=== PATIENT | male | born 1985 | race Caucasian/White ===

== ENCOUNTER → 2017-01-20 | Outpatient (CLI) | payer OTHER ==
--- NOTE | 2017-01-20 20:26 | PN ---
71-year-old gentleman who has been followed in the sleep center to discuss results of diagnostic sleep study. We discussed diagnostic sleep study in detail. No significant respiratory abnormalities have been documented. 21 hypopneas total with total apnea-hypopnea index 2.8 with lowest oxygen level 90%. No any episodes of apnea have been documented. This range is considered to be normal at the present time. No significant amount of periodic limb movements. [place] Sleepiness Scale today is 6 which is normal. MEDICATIONS: Lamictal 100 mg once a day. During physical exam, the patient in no distress. VITAL SIGNS: BP 135/95, HR 66, RR 16. Height 6 feet 1 inch. Weight 322. BMI 42.4. HEENT: PERRLA, EOMI evaluation of oropharynx showed moderately low position of soft palate. Neck: Supple. No JVD. Thyroid is not palpable. LUNGS: Clear to percussion and to auscultation. Good air exchange. No wheezing or rhonchi. HEART: S1, S2 regular. No murmurs, gallops, or rubs. ABDOMEN: Obese. Soft and nontender. Bowel sounds are present. No organomegaly appreciated. EXTREMITIES: No clubbing or cyanosis. PEDIATRIC MEDICAL ASSISTANT: Awake, alert, and oriented x3. Cranial nerves 2 to 7 intact. There is no fasciculation or atrophy noted. No focal deficits observed. IMPRESSION: 1. Loud snoring has been documented during the sleep study. 2. No significant respiratory abnormalities have been documented. 3. History of anxiety. 4. Obesity in the range of 40. 5. Status post left hand reconstruction 2009. PLAN: 1. Losing weight. 2. Sleep hygiene with regular time in bed for at least 8 hours. 3. Preferable position during sleep on the side slightly up. 4. Patient may consider evaluation by ear, nose and throat physician for possibility to treat snoring. 5. No driving if feeling any sleepiness. Thank you very much for allowing me to participate in the management of your patient. Sincerely, Bob Eldridge MD, PhD, FAASM. Diplomat of [place] [employer], Sleep Medicine Board by [place] [employer] [place] [employer] Psychiatric Specialist [facility]
== END | disposition home or self-care (01) ==
LOC: SLEEP 16:10
PROVIDERS: ATTEND Internal Medicine
DX: R06.83 Snoring (principal); F41.9 Anxiety disorder, unspecified; E66.9 Obesity, unspecified; Z68.41 Body mass index [BMI] 40.0-44.9, adult; Z98.890 Other specified postprocedural states; Z79.899 Other long term (current) drug therapy

== ENCOUNTER 2017-03-22 16:30 | Emergency (ER) | payer OTHER ==
[2017-03-22 16:36] VITALS: BP 148/85; PULSE 77; RESP 20; TEMP 97.8
[2017-03-22] MEDS ORDERED: BACITRACIN 500 UNIT/GM OINT 28.4 GM TUBE TOPICAL ONE (16:41)
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
== END 2017-03-22 17:08 | disposition home or self-care (01) ==
LOC: EC 16:30
DX: T23.231A Burn of second degree of multiple right fingers (nail), not including thumb, initial encounter (principal); T22.10XA Burn of first degree of shoulder and upper limb, except wrist and hand, unspecified site, initial encounter; T31.0 Burns involving less than 10% of body surface; F41.9 Anxiety disorder, unspecified; Z79.899 Other long term (current) drug therapy; Z91.011 Allergy to milk products; Z88.8 Allergy status to other drugs, medicaments and biological substances; X19.XXXA Contact with other heat and hot substances, initial encounter; Y93.89 Activity, other specified
CPT/HCPCS: 99283

== ENCOUNTER → 2017-04-22 | Outpatient (CLI) | payer OTHER ==
[2017-04-22 13:48] LABS: Basophils % (A) 0 %; CH 28.6; Eosinophils % (A) 0 %; HCT 43.4 % (39.0-53.0); HDW 2.85; Luc # (Auto) 0.22; Luc % (Auto) 2; Lymphocytes # (A) 1.7 k/uL (1.0-4.8); Lymphocytes % (A) 15 %; MCH 28.4 pg (25.0-35.0); MCHC 34.6 g/dL (31.0-37.0); Mean Platelet Volume 6.4; Monocytes # (A) 0.5 k/uL (0-1.0); Monocytes % (A) 5 %; Neutrophils # (A) 8.6 k/uL (1.3-7.7); Neutrophils % (A) 78 %; RBC 5.29 m/uL (4.30-5.90); RDW 12.6 % (11.5-15.5); WBC 11.1 k/uL (3.8-10.6); WBC (Perox) 11.59
--- NOTE | 2017-04-22 14:00 | XR ---
EXAMINATION TYPE: XR chest 2V DATE OF EXAM: 04/22/2017 COMPARISON: Prior chest x-ray 12/03/2014 HISTORY: Cough and congestion TECHNIQUE: Frontal and lateral views of the chest are obtained. FINDINGS: There is no focal air space opacity, pleural effusion, or pneumothorax seen. The cardiac silhouette size is within normal limits. The osseous structures are intact. IMPRESSION: No acute cardiopulmonary process.
[2017-04-22 14:09] LABS: ALT 41 U/L (21-72); AST 26 U/L (17-59); Alkaline Phosphatase 81 U/L (38-126); Anion Gap 13 mmol/L; Blood Urea Nitrogen 17 mg/dL (9-20); Calcium 9.2 mg/dL (8.4-10.2); Carbon Dioxide 23 mmol/L (22-30); Chloride 104 mmol/L (98-107); Glucose 81 mg/dL (74-99); Non-African American GFR(MDRD) >60 (>60 ml/min/1.73 sqM); Potassium 4.1 mmol/L (3.5-5.1); Sodium 140 mmol/L (137-145); Total Bilirubin 0.7 mg/dL (0.2-1.3); Total Protein 6.7 g/dL (6.3-8.2)
== END | disposition home or self-care (01) ==
LOC: RADXRMAIN 12:35
PROVIDERS: ATTEND Physician Assistant
DX: R05 Cough (principal); R50.9 Fever, unspecified
CPT/HCPCS: 71020; 80053; 85025

== ENCOUNTER 2018-06-26 08:58 | Day surgery (SDC) | payer OTHER ==
[2018-06-21 12:55] VITALS: BMI 36.2
[~2018-06-26 08:58] MED LIST: LACTATED RINGERS 1,000 ML IV SCH
[2018-06-26 09:18] VITALS: RESP 16; TEMP 97.2
[2018-06-26] MEDS ORDERED: LIDOCAINE 1% 20 ML VIAL (10MG/ML) FOR IV START INTRADERMA ONE (09:26)
[2018-06-26] MEDS ORDERED: ONDANSETRON 4 MG/2 ML VIAL ONE (09:56)
[2018-06-26] MEDS ORDERED: PROPOFOL 10 MG/ML 20 ML VIAL IV ONE (09:56)
[2018-06-26] MEDS ORDERED: LIDOCAINE 1% INJ 10MG/ML (20 ML MDV) ONE (09:56)
[2018-06-26] MEDS ORDERED: fentaNYL (PF) 50 MCG/ML 2 ML AMP ONE (09:56)
--- NOTE | 2018-06-26 10:31 | P.PCN ---
Date of Procedure: 06/26/18 Procedure(s) Performed: Procedures: 1. Esophagogastroduodenoscopy and biopsy. 2. Total colonoscopy and biopsy of the colon and terminal ileum. Preoperative diagnosis: Nausea, vomiting and diarrhea. Postoperative diagnosis: 1. Mild gastritis and duodenitis. 2. Normal colon and terminal ileum. 3.multiple biopsies obtained from the duodenum, antrum, esophagus, terminal ileum and random colon. Preparation: HalfLytely prep. Sedation: Was provided by anesthesia. Brief clinical history: The patient is a 33-year-old male who is scheduled for this evaluation because of chronic nausea, vomiting and diarrhea. He has no overt bleeding or any other GI complaints at this time. Procedure: With the patient on his left lateral decubitus position and after informed consent and adequate sedation, I passed the Olympus-GIF 160 video upper endoscope through the cricopharyngeus down the esophagus. GE junction was around 41 cm from the incisors and there was no definite hiatal hernia or any obvious esophagitis or complicated reflux disease. The endoscope was then passed into the stomach which was insufflated with air and inspected in detail including the retroflex view in the cardia. There was some mottling, erythema and friability in the antrum but no ulcers or erosions. Pyloric channel did not show any ulcers. Duodenal bulb shows mottling, erythema and friability but no ulcers, erosions or bleeding. Post bulbar area and descending duodenum appeared normal. I obtained biopsies from the duodenum, antrum and esophagus then the endoscope was withdrawn and I proceeded with the colonoscopy. Perianal area did not show any fissures or fistulas. There were no masses felt on digital rectal examination. The Olympus CFQ 160L video colonoscope was then inserted in the rectum in the usual fashion and advanced to the cecum. I intubated the ileocecal valve and examined the terminal ileum. The mucosa appeared healthy. No polyps or tumors were seen or any obvious diverticular disease or bleeding. I obtained biopsies from the terminal ileum and randomly from the colon then I retroflexed endoscope in the rectum before the endoscope was withdrawn. The patient tolerated the procedure well. Plan: The patient was reassured. Will await biopsy results. Further plans will be made based on his course and biopsy results. He'll follow up with you as planned and I'll be happy to see in the future if his symptoms persist.
[2018-06-26 10:56] VITALS: BP 122/77; PULSE 76
== END 2018-06-26 11:13 | disposition home or self-care (01) ==
LOC: ORWHC2ENDO 08:58
DX: K29.80 Duodenitis without bleeding (principal); K29.50 Unspecified chronic gastritis without bleeding; K20.9 Esophagitis, unspecified; K52.9 Noninfective gastroenteritis and colitis, unspecified; F41.9 Anxiety disorder, unspecified; Z79.899 Other long term (current) drug therapy; Z88.8 Allergy status to other drugs, medicaments and biological substances; Z91.011 Allergy to milk products
CPT/HCPCS: 88305; 45380; 43239; J2405; J2001; J3010; J2704

== ENCOUNTER 2018-07-24 08:17 | Emergency (ER) | payer OTHER ==
[2018-07-24] MEDS ORDERED: DIPH,PERTUS(ACELL)TETVAC-LF 0.5 ML VIAL IM ONE (08:46)
--- NOTE | 2018-07-24 08:52 | ED ---
Wound/Laceration HPI - General Chief Complaint: Wound/Laceration Stated Complaint: Laceration eyebrow Time Seen by Provider: 07/24/18 08:32 Source: patient, RN notes reviewed Mode of arrival: ambulatory Limitations: no limitations - History of Present Illness Initial Comments: 33-year-old male presents emergency Department chief complaint of right eye cat Scratch. Patient states that his cat scratched him in his right eyelid it did bleed fairly well last night and woke up 20 oh still open so he felt that he needs to come emergency department. He is unsure when his last tetanus was. Denies any blurred vision no double vision. States that he has no pain with ocular movement. - Related Data Home Medications Medication Instructions Recorded Confirmed Dicyclomine HCl 10 mg PO HS 06/21/18 07/24/18 Omeprazole 20 mg PO HS 06/21/18 07/24/18 lamoTRIgine [lamoTRIgine ER] 200 mg PO HS 06/21/18 07/24/18 Previous Rx's Medication Instructions Recorded Azithromycin [Zithromax Z-pack] 0 mg PO DIRECTED #1 pack 07/24/18 Cephalexin [Keflex] 500 mg PO Q6HR #28 cap 07/24/18 Allergies Allergy/AdvReac Type Severity Reaction Status Date / Time sertraline HCl [From Zoloft] Allergy Unknown Verified 07/24/18 08:38 Childhood Milk Containing Products AdvReac Nausea & Verified 07/24/18 08:38 [Dairy] Vomiting & Diarrhea Review of Systems ROS Statement: Those systems with pertinent positive or pertinent negative responses have been documented in the HPI. ROS Other: All systems not noted in ROS Statement are negative. Past Medical History Past Medical History: No Reported History History of Any Multi-Drug Resistant Organisms: None Reported Additional Past Surgical History / Comment(s): left hand Past Psychological History: Anxiety Smoking Status: Never smoker Past Alcohol Use History: None Reported Past Drug Use History: None Reported General Exam Limitations: no limitations General appearance: alert, in no apparent distress Head exam: Present: atraumatic, normocephalic, normal inspection Eye exam: Present: PERRL, EOMI. Absent: normal appearance (1 cm-laceration to the right eyelid), scleral icterus, conjunctival injection, periorbital swelling ENT exam: Present: normal exam, normal oropharynx, mucous membranes moist, TM's normal bilaterally Neck exam: Present: normal inspection, full ROM. Absent: tenderness, meningismus, lymphadenopathy Respiratory exam: Present: normal lung sounds bilaterally. Absent: respiratory distress, wheezes, rales, rhonchi, stridor Cardiovascular Exam: Present: regular rate, normal rhythm, normal heart sounds. Absent: systolic murmur, diastolic murmur, rubs, gallop, clicks Course Vital Signs 07/24/18 08:22 Temperature 98.3 F Pulse Rate 90 Respiratory 20 Rate Blood Pressure 131/85 O2 Sat by Pulse 99 Oximetry Procedures - Laceration Laceration #1 Consent Obtained: verbal consent Indication: laceration Site: eyelid Size (cm): 1 Description: linear Depth: simple, single layer Size of Sutures: 6-0 Number of Sutures: 1 Technique: simple, interrupted Patient Tolerated Procedure: well, no complications Medical Decision Making - Medical Decision Making 33-year-old male presents emergency department for right lid eye laceration. One stitch was placed in a laceration. Patient was placed on azithromycin Keflex. Disposition Clinical Impression: Right eyelid laceration, Cat scratch Disposition: HOME SELF-CARE Condition: Stable Instructions: Care For Your Stitches (ED), Laceration (ED) Additional Instructions: Please return to the Emergency Department if symptoms worsen or any other concerns. Prescriptions: Azithromycin [Zithromax Z-pack] 0 mg PO DIRECTED #1 pack Cephalexin [Keflex] 500 mg PO Q6HR #28 cap Is patient prescribed a controlled substance at d/c from ED?: No Referrals: Victoriano Porter DO [Primary Care Provider] - 1-2 days Time of Disposition: 08:51
[2018-07-24 09:53] VITALS: BP 128/85; PULSE 61; RESP 18; TEMP 98.6
== END 2018-07-24 09:52 | disposition home or self-care (01) ==
LOC: EC 08:17
DX: S01.111A Laceration without foreign body of right eyelid and periocular area, initial encounter (principal); F41.9 Anxiety disorder, unspecified; Z79.899 Other long term (current) drug therapy; Z91.011 Allergy to milk products; Z88.8 Allergy status to other drugs, medicaments and biological substances; W55.03XA Scratched by cat, initial encounter; Z23 Encounter for immunization
CPT/HCPCS: 12011; 90471; 90715; 99282

== ENCOUNTER 2019-05-01 14:46 | Emergency (ER) | payer OTHER ==
[2019-05-01 15:20] VITALS: BP 135/87; PULSE 56; RESP 18; TEMP 98.8
--- NOTE | 2019-05-01 16:32 | XR ---
EXAMINATION TYPE: XR knee complete LT DATE OF EXAM: 05/01/2019 CLINICAL HISTORY: Palpable abnormality of the patella. TECHNIQUE: Three views of the left knee are obtained. COMPARISON: None. FINDINGS: There is no acute fracture/dislocation evident in left knee. The tri-compartment joint sp aces appear within normal limits other than very small lateral compartment osteophyte. The overlying soft tissue appears unremarkable. Tortuous densities in the subcutaneous tissues likely represent fuller perficial venous varicosities. Extensor mechanism is grossly intact radiographically. No suspicious o sseous lesion. No radiographic correlate for the patient's palpable abnormality. No radiopaque foreig n body is seen. IMPRESSION: There is no acute fracture or dislocation in the left knee. No radiographic correlate fo r the patient's stated palpable abnormality overlying the patella. Targeted ultrasound could be perfo rmed if there is further concern.
--- NOTE | 2019-05-01 16:45 | ED ---
Extremity Problem HPI - General Chief complaint: Extremity Problem,Nontraumatic Stated complaint: Knee pain Time Seen by Provider: 05/01/19 16:14 Source: patient Mode of arrival: ambulatory Limitations: no limitations - History of Present Illness Initial comments: 33-year-old male presenting for anterior left knee redness. Patient states that he does a lot of lifting and bending at work. Patient states he started no tenderness over the anterior aspect of the left knee. This began one to 2 days prior. Patient states that he felt like he had a small lump on the anterior aspect. H called his primary care provider who recommended coming to the emergency department for further evaluation. Patient states he is able to weight-bear and bending the knee without difficulty. Patient states he only has slight tenderness with full flexion and that is over the anterior aspect. Patient has no difficulty weightbearing denies fever or chills night sweats or flank symptoms. Patient denies any recent upper rest or infections or surgeries. Patient has numbness tingling or loss sensation of the extremity. Patient denies any significant lower extremity swelling. Remaining review of systems negative upon arrival patient appears well signs of acute distress. Afebrile. - Related Data Home Medications Medication Instructions Recorded Confirmed Dicyclomine HCl 10 mg PO HS 06/21/18 07/24/18 Omeprazole 20 mg PO HS 06/21/18 07/24/18 lamoTRIgine [lamoTRIgine ER] 200 mg PO HS 06/21/18 07/24/18 Previous Rx's Medication Instructions Recorded Azithromycin [Zithromax Z-pack] 0 mg PO DIRECTED #1 pack 07/24/18 Cephalexin [Keflex] 500 mg PO Q6HR #28 cap 07/24/18 Cephalexin [Keflex] 500 mg PO Q6HR 28 Days #7 cap 05/01/19 Allergies Allergy/AdvReac Type Severity Reaction Status Date / Time prednisone Allergy Unknown Verified 05/01/19 15:20 sertraline HCl [From Zoloft] Allergy Unknown Verified 05/01/19 15:20 Childhood Milk Containing Products AdvReac Nausea & Verified 05/01/19 15:20 [Dairy] Vomiting & Diarrhea Review of Systems ROS Statement: Those systems with pertinent positive or pertinent negative responses have been documented in the HPI. ROS Other: All systems not noted in ROS Statement are negative. Past Medical History Past Medical History: No Reported History History of Any Multi-Drug Resistant Organisms: None Reported Past Surgical History: Orthopedic Surgery Additional Past Surgical History / Comment(s): left hand Past Psychological History: Anxiety Smoking Status: Never smoker Past Alcohol Use History: None Reported Past Drug Use History: None Reported General Exam - General Exam Comments Initial Comments: General: The patient is awake and alert, in no distress, and does not appear acutely ill. Eye: Pupils are equal, round and reactive to light, extra-ocular movements are intact. No nystagmus. There is normal conjunctiva bilaterally. No signs of icterus. Cardiovascular: There is a regular rate and rhythm. No murmur, rub or gallop is appreciated. Respiratory: Lungs are clear to auscultation, respirations are non-labored, breath sounds are equal. No wheezes, stridor, rales, or rhonchi. Musculoskeletal: Upon inspection of the knees bilaterally there is no significant soft tissue swelling noted. There is mild erythema of the anterior aspect of the left knee. There is small palpable induration noted of the anter ior patella. There is no tenderness to palpation over the joint line. Patient is able to fully flex extend both passively and actively at the left knee. No pain with this range of motion. Patient is able to weight-bear without difficulty or pain. Strength is intact as well as sensation of the proximal distal to the affected injury. Dorsalis pedis pulses +2 equal comparison bilaterally. Capillary refill less than 3 seconds. No evidence of foot drop. Compartments are soft and compressible. No painful noted out of proportion. No warmth to palpation of the knee joint. Neurological: A&O x 3. CN II-XII intact, There are no obvious motor or sensory deficits. Coordination appears grossly intact. Speech is normal. Skin: Skin is warm and dry and no rashes or lesions are noted. Psychiatric: Cooperative, appropriate mood & affect, normal judgment. Limitations: no limitations Course Vital Signs 05/01/19 15:16 Temperature 98.8 F Pulse Rate 56 L Respiratory 18 Rate Blood Pressure 135/87 O2 Sat by Pulse 98 Oximetry Medical Decision Making - Medical Decision Making 33 year male presenting for anterior knee pain and slight redness. On physical examination there is some slight redness of the anterior left knee. There is no significant swelling. No noted masses. The differential diagnosis includes developing prepatellar bursitis given patient's repetitive movement at work most likely inflammatory,ersus a developing cellulitis of the anterior knee skin. With sialitis and differential diagnosis patient be started on Keflex. Patient is also instructed to rest ice compress as well as take NSAIDs for left knee pain. No signs of septic joint this time. No signs consistent with a septic bursitis. And he stays are negative for acute osseous process. Return parameters discussed at length patient verbalized understanding. Patient is discharged with primary care follow-up. I discussed the case with attending provider Dr. Lenz prior to patient's discharge was agreeable care plan Disposition Clinical Impression: Right anterior knee pain Disposition: HOME SELF-CARE Condition: Good Instructions (If sedation given, give patient instructions): Knee Bursitis (ED), R.I.C.E. Treatment (ED) Additional Instructions: Please use medication as discussed. Please follow-up with family doctor in the next 2 days. Please return to emergency room if the symptoms increase or worsen or for any other concerns. Prescriptions: Cephalexin [Keflex] 500 mg PO Q6HR 28 Days #7 cap Is patient prescribed a controlled substance at d/c from ED?: No Referrals: Victoriano Porter DO [Primary Care Provider] - 1-2 days Time of Disposition: 16:45
== END 2019-05-01 17:04 | disposition home or self-care (01) ==
LOC: EC 14:46
DX: M25.561 Pain in right knee (principal); F41.9 Anxiety disorder, unspecified; Z79.899 Other long term (current) drug therapy; Z88.8 Allergy status to other drugs, medicaments and biological substances; Z91.011 Allergy to milk products
CPT/HCPCS: 99283

== ENCOUNTER → 2019-05-14 | Outpatient (CLI) | payer OTHER ==
--- NOTE | 2019-05-14 18:41 | US ---
EXAMINATION TYPE: US venous doppler duplex LE LT DATE OF EXAM: 05/14/2019 5:32 PM COMPARISON: NONE CLINICAL HISTORY: M79.605 Pain in left leg. Patient states having swelling. No hx of blood clots. No redness. SIDE PERFORMED: Left TECHNIQUE: The lower extremity deep venous system is examined utilizing real time linear array sonog emmanuel with graded compression, doppler sonography and color-flow sonography. VESSELS IMAGED: External Iliac Vein (EIV) Common Femoral Vein Deep Femoral Vein Greater Saphenous Vein * Femoral Vein Popliteal Vein Small Saphenous Vein * Proximal Calf Veins (* superficial vessels) FINDINGS: Grayscale, color doppler, spectral doppler imaging performed of the deep veins of the lower extremities. There is normal flow, compressibility, vascular waveforms. IMPRESSION: Negative for DVT, left lower extremity.
--- NOTE | 2019-05-15 09:23 | US ---
EXAMINATION TYPE: US extremity nonvasc mass LT DATE OF EXAM: 05/14/2019 COMPARISON: XRAY CLINICAL HISTORY: Palpable left knee M25.562. Palpable lump anterior left knee since April. Patient s tates it is getting bigger and feels numb. TECHNIQUE/FINDINGS: Area of concern scanned in the palpable region of the left knee. Superificial no nvascular complex fluid collection visualized= 3.3 x 2.4 x 0.7 cm. Contralateral images taken. IMPRESSION: Avascular complex fluid collection measuring 3.3 cm corresponding the palpable abnormali ty of the anterior left knee. This could represent portion of the joint effusion, however is not dist inctly connected to a larger joint effusion on ultrasound. Alternatively this could represent hematom a or cystic neoplasm given short-term increase in size per patient history. MRI with and without cont rast is recommended for further evaluation.
== END | disposition home or self-care (01) ==
LOC: RADUSWWP 17:01
PROVIDERS: ATTEND Family Medicine
DX: M79.605 Pain in left leg (principal); M25.562 Pain in left knee

== ENCOUNTER → 2019-05-28 | Outpatient (CLI) | payer OTHER ==
--- NOTE | 2019-05-28 23:17 | MR ---
EXAMINATION TYPE: MR knee LT wo/w con DATE OF EXAM: 05/28/2019 COMPARISON: None HISTORY: Palpable lump, anterior lt knee TECHNIQUE: Multiplanar, multisequence images of the left knee is performed with 13.5 mL intravenous G adavist gadolinium contrast. FINDINGS: The anterior and posterior cruciate ligaments are intact. The lateral meniscus is intact. There is mi ld degenerative signal change within the posterior horn and anterior horn of the medial meniscus with out extension to the articular surface. There is a very small knee joint effusion. The collateral lig aments are intact. Joint spaces are normal. I see no bony destructive process. There is no evidence o f a fracture. There is no bone edema. There is subcutaneous edema over the anterior patella. There is a 5 x 12 mm fluid collection over the anterior aspect of the patella. I see no definite pathologic enhancement. IMPRESSION: No evidence of ligamentous or meniscal tear. Small knee joint effusion. Moderate subcutaneous edema o tunde the anterior patella with small fluid collection and could be seroma or hematoma. Abscess not exc luded.
== END ==
LOC: RADMRIMAIN 21:13
PROVIDERS: ATTEND Family Medicine
DX: M25.462 Effusion, left knee (principal)
CPT/HCPCS: 73723; A9585

== ENCOUNTER 2019-07-17 19:39 | Emergency (ER) | payer OTHER ==
[2019-07-17 19:52] VITALS: BP 145/84; PULSE 60; RESP 20; TEMP 99.6
--- NOTE | 2019-07-17 20:30 | ED ---
Upper Extremity HPI - General Chief Complaint: Extremity Injury, Upper Stated Complaint: fall/wrist pain-[facility] Time Seen by Provider: 07/17/19 19:56 Source: patient Mode of arrival: ambulatory Limitations: no limitations - History of Present Illness Initial Comments: Patient is a 34-year-old male presenting to the emergency Department complaints of left wrist pain x 5 days. Patient states he was at work lifting a range when he missed a step in the range pushed left wrist into the wall. Patient states he had a small abrasion to the medial aspect of the left wrist however he did not have a lot of pain. Patient states over the last few days, his pain has been increasing. Patient noticed bruising around the area as well. Patient states he is still able to work yesterday and today. Patient has no other complaints at this time. Patient states he does have some plates and screws in his left hand from her previous injury. Patient denies fever or chills. Upon arrival to ER, vital signs are stable. - Related Data Home Medications Medication Instructions Recorded Confirmed Dicyclomine HCl 10 mg PO HS 06/21/18 07/24/18 Omeprazole 20 mg PO HS 06/21/18 07/24/18 lamoTRIgine [lamoTRIgine ER] 200 mg PO HS 06/21/18 07/24/18 Previous Rx's Medication Instructions Recorded Azithromycin [Zithromax Z-pack] 0 mg PO DIRECTED #1 pack 07/24/18 Cephalexin [Keflex] 500 mg PO Q6HR #28 cap 07/24/18 Cephalexin [Keflex] 500 mg PO Q6HR 28 Days #7 cap 05/01/19 Allergies Allergy/AdvReac Type Severity Reaction Status Date / Time prednisone Allergy Unknown Verified 07/17/19 19:52 sertraline HCl [From Zoloft] Allergy Unknown Verified 07/17/19 19:52 Childhood Milk Containing Products AdvReac Nausea & Verified 07/17/19 19:52 [Dairy] Vomiting & Diarrhea Review of Systems ROS Statement: Those systems with pertinent positive or pertinent negative responses have been documented in the HPI. ROS Other: All systems not noted in ROS Statement are negative. Past Medical History Past Medical History: No Reported History History of Any Multi-Drug Resistant Organisms: None Reported Past Surgical History: Orthopedic Surgery Additional Past Surgical History / Comment(s): left hand Past Psychological History: Anxiety Smoking Status: Never smoker Past Alcohol Use History: None Reported Past Drug Use History: None Reported General Exam - General Exam Comments Initial Comments: GENERAL: Well-appearing, well-nourished and in no acute distress. HEAD: Atraumatic, normocephalic. EYES: Pupils equal round and reactive to light, extraocular movements intact, sclera anicteric, conjunctiva are normal. ENT: TMs normal, nares patent, oropharynx clear without exudates. Moist mucous membranes. NECK: Normal range of motion, supple without lymphadenopathy or JVD. LUNGS: Breath sounds clear to auscultation bilaterally and equal. No wheezes rales or rhonchi. HEART: Regular rate and rhythm without murmurs, rubs or gallops. ABDOMEN: Soft, nontender, normoactive bowel sounds. No guarding, no rebound. No masses appreciated. : Deferred EXTREMITIES: Patient has mild pain with palpation of the left medial wrist. There is some bruising to the area. No swelling. Patient has full wrist range of motion. Neurovascular intact. NEUROLOGICAL: Cranial nerves II through XII grossly intact. Normal speech, normal gait. PSYCH: Normal mood, normal affect. SKIN: Warm, Dry, normal turgor, no rashes or lesions noted. Limitations: no limitations Course Vital Signs 07/17/19 19:41 Temperature 99.6 F Pulse Rate 60 Respiratory 20 Rate Blood Pressure 145/84 O2 Sat by Pulse 96 Oximetry Medical Decision Making - Medical Decision Making Patient is a 34-year-old male presenting with a left wrist contusion happened 5 days ago at work. X-rays reveal no acute fractures dislocations. Patient was educated on a bone contusion. Patient will use ice and Tylenol as needed for pain relief. Patient stable for discharge at this time. Patient follow-up with PCP as needed for continued to need pain. Disposition Clinical Impression: Contusion of left wrist Disposition: HOME SELF-CARE Condition: Stable Instructions (If sedation given, give patient instructions): Wrist Injury (ED) Additional Instructions: Please return to the Emergency Department if symptoms worsen or any other concerns. Use ice on the wrist as needed for pain relief. Is patient prescribed a controlled substance at d/c from ED?: No Referrals: Victoriano Porter DO [Primary Care Provider] - 1-2 days
--- NOTE | 2019-07-17 20:36 | XR ---
EXAMINATION TYPE: XR wrist complete LT DATE OF EXAM: 07/17/2019 COMPARISON: NONE HISTORY: Fall. Wrist pain. TECHNIQUE: 4 views FINDINGS: Carpal bones are intact. I see no fracture nor dislocation. Joint spaces are normal. There are no erosions IMPRESSION: No acute abnormality of the left wrist.
== END 2019-07-17 21:35 | disposition home or self-care (01) ==
LOC: EC 19:39
DX: S60.212A Contusion of left wrist, initial encounter (principal); F41.9 Anxiety disorder, unspecified; Z79.899 Other long term (current) drug therapy; Z88.8 Allergy status to other drugs, medicaments and biological substances; Z91.011 Allergy to milk products; W22.01XA Walked into wall, initial encounter; Y92.69 Other specified industrial and construction area as the place of occurrence of the external cause; Y99.0 Civilian activity done for income or pay
CPT/HCPCS: 99283

== ENCOUNTER 2019-12-14 11:22 | Day surgery (SDC) | payer OTHER ==
[2019-12-13 10:27] VITALS: BMI 36.2
[~2019-12-14 11:22] MED LIST changes: +LIDOCAINE 1% (10MG/ML) FOR IV START INTRADERMA PRN; +MIDAZOLAM 2 MG/2 ML VIAL IV PRN; +ONDANSETRON 4 MG/2 ML VIAL IVP ONE; +Pre Op ABX Message 1 EACH MISC MISCELLANE ONE; +fentaNYL (PF) 50 MCG/ML 2 ML AMP IVP PRN
[2019-12-14] MEDS ORDERED: DEXAMETHASONE SOD PHOSPHATE 10 MG/ML 1 ML VIAL IV ONE (11:58)
[2019-12-14] MEDS ORDERED: SCOPOLAMINE 1.5MG/72HR PATCH TRANSDERM ONE (12:00)
[2019-12-14] MEDS ORDERED: KETOROLAC 30 MG/ML 1 ML VIAL ONE (12:25)
[2019-12-14] MEDS ORDERED: fentaNYL (PF) 50 MCG/ML 2 ML AMP ONE (12:25)
[2019-12-14] MEDS ORDERED: LIDOCAINE 1% INJ 10MG/ML (20 ML MDV) ONE (12:25)
[2019-12-14] MEDS ORDERED: PROPOFOL 10 MG/ML 20 ML VIAL IV ONE (12:25)
[2019-12-14] MEDS ORDERED: SUCCINYLCHOLINE CHLORIDE VIAL 200 MG/10 ML VIAL IV ONE (12:25)
[2019-12-14] MEDS ORDERED: MIDAZOLAM 2 MG/2 ML VIAL ONE (12:25)
[2019-12-14] MEDS ORDERED: BUPIVACAINE (PF) 0.5% 30 ML VIAL INTRAARTIC ONE (13:32)
--- NOTE | 2019-12-14 13:53 | P.OP ---
Date of Procedure: 12/14/19 Procedure(s) Performed: PREOPERATIVE DIAGNOSIS: 1. 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 Left knee prepatellar bursal scar tissue irritation/mass POSTOPERATIVE DIAGNOSIS: 1. Left knee focal chondrosis/chondral defect patella 1.5 cm x 1.0 cm 2. Left knee prepatellar bursal scar tissue irritation/mass PROCEDURES PERFORMED: 1. Left knee arthroscopy, with chondroplasty of patellofemoral compartment 2. 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 He has difficulty kneeling secondary to a wad of scar tissue/mass in the prepatellar bursa that is extremely painful with direct contact. MRI findings are suspicious for patellofemoral chondrosis and prepatellar bursal scar tissue. Patient presents to the operating room today for arthroscopy with chondroplasty or smoothing of the articular surfaces, along with prepatellar bursectomy/excision of mass. I have explained the procedure in detail as well as potential risks and complications as being inclusive of but not limited to: Bleeding, infection, scarring, discomfort, blood vessel and/or nerve damage, failure to relieve symptoms, persistence or recurrence and/or worsening of symptoms, blood clot, pulmonary embolism, limp, , and other risks, including the need for knee replacement. The consent form has been signed. PROCEDURE: After appropriate consent was obtained, the patient was taken to the operating room and placed supine on the operating table. General anesthesia was initiated. The left knee was examined under anesthesia. Medial collateral, lateral collateral, anterior and posterior cruciate ligaments were all intact. Range of motion was 0-130 with mild crepitus in the patellofemoral compartment. Mild effusion but no soft tissue swelling was noted. Prepping and draping of the operative knee was performed in the usual sterile fashion using ChloraPrep. Care was taken that all pressure points were adequately padded. Leg barahona and pneumotourniquet were used. ``Time-out" was called [facility] to [facility] standards, confirming patient identity, surgical procedure, side, and antibiotics were not administered, per protocol. Prepatellar bursectomy was performed first. The mass was palpable beneath the skin surface in the prepatellar bursa centrally directly over the inferior aspect of the patella. A horizontal incision along Luzmaria's lines was made with a 15 blade, just through skin. Sharp dissection then carried down to bursal scar tissue which was prominent in this individual. Scar tissue mass was approximately a 2.0 cm diameter round area directly centered at the inferior pole of the patella. The mass of scar tissue was removed sharply. The sample was sent to pathology for analysis. Thorough irrigation was performed and hemostasis was obtained with electrocautery. Closure was performed with subcuticular 3-0 Monocryl suture. The surgical portals were placed directly next to the patellar tendon medially and laterally. Camera and instruments were carefully inserted into the knee and arthroscopy was performed. Mild synovitis was seen, and was resected where it appeared particularly inflamed. Patellofemoral joint showed grade 2 chondrosis involving an area approximately 1.5 cm x 1 cm of the undersurface of the patella without any corresponding changes to the trochlea. Unstable cartilage was was seen at the lesion of the patella and was trimmed as necessary to produce a smooth surface. Due to the shallowness of the lesion, microfracture was not indicated. Lateral compartment showed normal hyaline cartilage without defect. Lateral meniscus was visualized and probed, the anterior and posterior horns showing no significant degeneration. Popliteal hiatus was normal. No loose bodies. Medial compartment was then examined. Intact meniscus and intact hyaline cartilage was seen. Cruciate ligaments were noted to be intact. No loose bodies or ganglion cysts were noted around the cruciate ligaments. Medial and lateral gutters showed no evidence of loose bodies, but some mild synovitis was present and was resected with a shaver. Portals were then closed with 4-0 Monocryl suture. A quantity of ropivacaine solution was injected into the knee and around the portal sites. Steri-Strips were applied and tourniquet was deflated. Sterile dressing and light compressive dressing was applied using Webril and MARK wrap. Patient tolerated the procedure well and taken to recovery room in stable condition. Sponge and needle counts were correct.
[2019-12-14 13:57] VITALS: TEMP 97.2
[2019-12-14] MEDS: HYDROmorphone 0.5 MG/0.5 ML SYRINGE IVP PRN ×2 (14:20→14:25)
[2019-12-14] MEDS ORDERED: ONDANSETRON 4 MG/2 ML VIAL IVP ONE (14:32)
[2019-12-14 15:17] VITALS: RESP 17
[2019-12-14] MEDS ORDERED: HYDROcodone/APAP 7.5-325MG 1 EACH TAB PO ONE (15:26)
[2019-12-14 15:37] VITALS: BP 116/75; PULSE 62
[2019-12-14] MEDS ORDERED: ONDANSETRON ODT 4 MG TAB PO ONE (16:32)
== END 2019-12-14 17:03 | disposition home or self-care (01) ==
LOC: OR 11:22
PROVIDERS: ATTEND Orthopaedic Surgery
DX: M70.42 Prepatellar bursitis, left knee (principal); M71.862 Other specified bursopathies, left knee; R22.42 Localized swelling, mass and lump, left lower limb; M94.8X6 Other specified disorders of cartilage, lower leg; M65.862 Other synovitis and tenosynovitis, left lower leg; Z88.1 Allergy status to other antibiotic agents; Z88.8 Allergy status to other drugs, medicaments and biological substances; Z87.19 Personal history of other diseases of the digestive system; Z82.49 Family history of ischemic heart disease and other diseases of the circulatory system; E66.01 Morbid (severe) obesity due to excess calories; Z68.36 Body mass index [BMI] 36.0-36.9, adult; Z98.890 Other specified postprocedural states
CPT/HCPCS: 29877; 88305; 27340; J2250; J0330; J1100; J2405; J2001; J3010; J1885; J2704; J1170

== ENCOUNTER → 2019-12-25 | Outpatient (CLI) | payer OTHER ==
--- NOTE | 2019-12-25 12:31 | US ---
EXAMINATION TYPE: US venous doppler duplex LE LT DATE OF EXAM: 12/25/2019 12:23 PM COMPARISON: Prior left lower extremity venous ultrasound May 14, 2019 CLINICAL HISTORY: M25.562 PAIN IN LEFT KNEE, M70.42. Post left knee scar tissue removed and cartilage trimmed 12/14/2019 SIDE PERFORMED: Left TECHNIQUE: The lower extremity deep venous system is examined utilizing real time linear array sonog emmanuel with graded compression, doppler sonography and color-flow sonography. VESSELS IMAGED: Common Femoral Vein Deep Femoral Vein Greater Saphenous Vein * Femoral Vein Popliteal Vein Small Saphenous Vein * Proximal Calf Veins (* superficial vessels) Left Leg: Negative for DVT Grayscale, color doppler, spectral doppler imaging performed of the deep veins of the left lower extr emity. There is normal flow, compressibility, vascular waveforms. IMPRESSION: No ultrasound evidence for acute DVT in the left lower extremity.
== END | disposition home or self-care (01) ==
LOC: RADUSWWP 11:20
PROVIDERS: ATTEND Orthopaedic Surgery
DX: M25.562 Pain in left knee (principal); M70.42 Prepatellar bursitis, left knee; M70.52 Other bursitis of knee, left knee; I80.9 Phlebitis and thrombophlebitis of unspecified site

== ENCOUNTER → 2019-12-27 | Outpatient (CLI) | payer OTHER ==
--- NOTE | 2019-12-28 07:11 | US ---
EXAMINATION TYPE: US kidneys/renal and bladder DATE OF EXAM: 12/27/2019 COMPARISON: NONE CLINICAL HISTORY: N28.1 Kidney cyst noted on outside MRI. EXAM MEASUREMENTS: Right Kidney: 10.8 x 5.3 x 4.3 cm Left Kidney: 13.6 x 5.3 x 4.7 cm Post Void Residual Volume: 6.4 mL Right Kidney: Right cortical cyst noted mid = 1.3 x 1.1 x 1.0cm Left Kidney: No hydronephrosis or masses seen; prominent column of Mathew is noted mid kidney ; large r size than right kidney. Bladder: wnl Bilateral Jets seen: yes Normal Post Void Residual: yes There is no evidence for hydronephrosis at this point in time. No nephrolithiasis is seen. The urina ry bladder is anechoic. Bilateral ureteral jets are seen. IMPRESSION: Right cortical renal cyst measuring 1.3 cm appears benign. No hydronephrosis or nephrolithiasis of ei ther kidney.
== END | disposition home or self-care (01) ==
LOC: RADUSWWP 16:17
PROVIDERS: ATTEND Family Medicine
DX: N28.1 Cyst of kidney, acquired (principal)
CPT/HCPCS: 76770

== ENCOUNTER 2020-08-26 08:35 | Emergency (ER) | payer OTHER ==
[2020-08-26 08:40] VITALS: BP 137/87; PULSE 72; RESP 16; TEMP 99.4
--- NOTE | 2020-08-26 09:02 | ED ---
Upper Extremity HPI - General Chief Complaint: Extremity Injury, Upper Stated Complaint: Shoulder Pain Time Seen by Provider: 08/26/20 08:47 Source: patient, RN notes reviewed Mode of arrival: ambulatory Limitations: no limitations - History of Present Illness Initial Comments: 35-year-old male presents emergency Department chief complaint of left shoulder pain. Patient states has been bothersome for a while states is seems to be getting worse. He does contribute this to lifting and moving things has a moving their house. Patient is right-hand dominant. Denies any traumatic injury no work injury. Patient had no prior shoulder injuries no other complaints. - Related Data Home Medications Medication Instructions Recorded Confirmed traMADol HCL [Ultram] 50 mg PO Q6HR PRN 12/13/19 12/14/19 Previous Rx's Medication Instructions Recorded HYDROcodone/APAP 7.5-325MG [[place] 1 - 2 each PO Q6HR PRN #40 tab 12/14/19 7.5] Ibuprofen [Motrin] 600 mg PO Q8HR PRN #20 tab 08/26/20 Allergies Allergy/AdvReac Type Severity Reaction Status Date / Time prednisone Allergy ITCHING Verified 08/26/20 08:40 AND RASH sertraline HCl [From Zoloft] Allergy Unknown Verified 08/26/20 08:40 Childhood Milk Containing Products AdvReac Nausea & Verified 08/26/20 08:40 [Dairy] Vomiting & Diarrhea Review of Systems ROS Statement: Those systems with pertinent positive or pertinent negative responses have been documented in the HPI. ROS Other: All systems not noted in ROS Statement are negative. Past Medical History Past Medical History: No Reported History Additional Past Medical History / Comment(s): CYST TO LEFT KNEE, BURSITIS, back pain History of Any Multi-Drug Resistant Organisms: None Reported Past Surgical History: Orthopedic Surgery Additional Past Surgical History / Comment(s): ORIF left hand SX Past Anesthesia/Blood Transfusion Reactions: No Reported Reaction Past Psychological History: Anxiety Smoking Status: Never smoker Past Alcohol Use History: None Reported Past Drug Use History: None Reported - Past Family History Mother Family Medical History: No Reported History General Exam Limitations: no limitations General appearance: alert, in no apparent distress Head exam: Present: atraumatic, normocephalic, normal inspection Neck exam: Present: normal inspection, full ROM. Absent: tenderness, meningismus, lymphadenopathy Respiratory exam: Present: normal lung sounds bilaterally. Absent: respiratory distress, wheezes, rales, rhonchi, stridor Cardiovascular Exam: Present: regular rate, normal rhythm, normal heart sounds. Absent: systolic murmur, diastolic murmur, rubs, gallop, clicks Extremities exam: Present: other (Patient has pain with range of motion reports mild discomfort and subscapularis region, pain with apprehension test, strength is equal bilaterally, neurovascular intact equal and equal warmth radial pulses equal) Back exam: Present: normal inspection, full ROM. Absent: tenderness, paraspinal tenderness, vertebral tenderness Course Vital Signs 08/26/20 08:38 Temperature 99.4 F Pulse Rate 72 Respiratory 16 Rate Blood Pressure 137/87 O2 Sat by Pulse 99 Oximetry Medical Decision Making - Medical Decision Making X-rays negative, patient's symptoms are consistent with rotator cuff syndrome. Patient has some subscapularis insufficiency, discomfort. Patient will start and have tenderness, exercises. Patient follow-up with orthopedics for Disposition Clinical Impression: Rotator cuff syndrome of left shoulder Disposition: HOME SELF-CARE Condition: Stable Instructions (If sedation given, give patient instructions): Rotator Cuff Injury (ED), Exercises for Internal and External Shoulder Rotation (ED), Exercises for Shoulder Abduction and Adduction (ED), Exercises for Shoulder Flexion and Extension (ED) Additional Instructions: Please return to the Emergency Department if symptoms worsen or any other concerns. Prescriptions: Ibuprofen [Motrin] 600 mg PO Q8HR PRN #20 tab PRN Reason: Pain Is patient prescribed a controlled substance at d/c from ED?: No Referrals: Victoriano Porter DO [Primary Care Provider] - 1-2 days Jayson Amador MD [STAFF PHYSICIAN] - 1-2 days Time of Disposition: 09:22
--- NOTE | 2020-08-26 09:17 | XR ---
EXAMINATION TYPE: XR shoulder complete LT DATE OF EXAM: 08/26/2020 COMPARISON: NONE HISTORY: Pain TECHNIQUE: Three views are submitted. FINDINGS: The osseous structures are intact. There is no acute fracture or dislocation. The AC joint is maint ained. IMPRESSION: 1. No acute process.
[2020-08-26] MEDS ORDERED: ACET/COD 300 MG/30 MG STARTER PACK 6 TAB BTL PO STA (09:23)
== END 2020-08-26 09:29 | disposition home or self-care (01) ==
LOC: EC 08:35
DX: S46.012A Strain of muscle(s) and tendon(s) of the rotator cuff of left shoulder, initial encounter (principal); Z88.8 Allergy status to other drugs, medicaments and biological substances; Z91.011 Allergy to milk products; Z98.890 Other specified postprocedural states; X58.XXXA Exposure to other specified factors, initial encounter
CPT/HCPCS: 99283

== ENCOUNTER → 2020-09-25 | Outpatient (CLI) | payer OTHER | END | disposition home or self-care (01) | LOC: LABWHC1 11:29 | PROVIDERS: ATTEND Family Medicine | DX: Z20.828 Contact with and (suspected) exposure to other viral communicable diseases (principal) | CPT/HCPCS: 87635; C9803 ==

== ENCOUNTER → 2020-10-27 | Outpatient (CLI) | payer OTHER ==
--- NOTE | 2020-10-28 00:51 | MR ---
EXAMINATION TYPE: MR thoracic spine wo/w con DATE OF EXAM: 10/27/2020 COMPARISON: None HISTORY: Neck, mid back, and low back pain for 2 years. CONTRAST: Standard multiplanar, multisequence MRI departmental protocol utilizing 13.5 mL intravenous Gadavist gadolinium contrast. Thoracic vertebra have normal alignment. There is no compression fracture. Disc spaces are fairly nor mal. There is rounded area of increased signal on the T1 and T2 images in the T7 vertebral body measu ring 2.6 cm and consistent with hemangioma. There is similar smaller 1.5 Lamont focus in the posterio r T5 vertebral body. There is similar sized lesion in the C6 vertebral body. There is no thoracic spi nal stenosis. Thoracic spinal cord has normal signal pattern. There is no edema. There is no evidence of thoracic paraspinal mass. IMPRESSION: Rounded high signal foci in the T5 and T7 and C6 vertebra consistent with hemangiomas. No fracture se en.
== END | disposition home or self-care (01) ==
LOC: RADMRIMAIN 18:11
PROVIDERS: ATTEND Orthopaedic Surgery
DX: M54.2 Cervicalgia (principal); M54.5 Low back pain; M54.6 Pain in thoracic spine
CPT/HCPCS: 72157; A9585

== ENCOUNTER → 2020-11-12 | Outpatient (CLI) | payer OTHER ==
--- NOTE | 2020-11-13 00:08 | MR ---
EXAMINATION TYPE: MR cspine/lspine wo/w con DATE OF EXAM: 11/12/2020 COMPARISON: None HISTORY: Neck, thoracic, and low back pain for 1 year. CONTRAST: Standard multiplanar, multisequence MRI departmental protocol utilizing 13 mL intravenous Gadavist ga dolinium contrast. The cervical vertebra have normal spacing and alignment. There is no compression fracture. I see no b bimal destructive process. Cervical spinal cord has normal signal pattern. Brainstem is intact. Fourth ventricle appears normal. Posterior elements are intact. The lumbar vertebra have normal alignment. There is slight decreased signal in the disks at L4-5 and L5-S1. There is no lumbar compression fracture. The neural foramina are widely patent. Lumbar nerve r oots appear normal. There is a very small posterior disc bulge at L5-S1. There is no lumbar paraspina l mass. The sacroiliac joints are partly visualized and appear intact. Contrast images show no pathologic enhancement of the cervical and lumbar spine. IMPRESSION: Negative MR scan of the cervical spine. Negative MR scan of the lumbar spine. No spinal stenosis or lumbar or cervical disc herniation. No fracture.
== END | disposition home or self-care (01) ==
LOC: RADMRIMAIN 18:07
PROVIDERS: ATTEND Orthopaedic Surgery
DX: M54.5 Low back pain (principal); M54.2 Cervicalgia
CPT/HCPCS: 72156; 72158; A9585

== ENCOUNTER 2020-12-01 00:43 | Emergency (ER) | payer OTHER ==
[2020-12-01 00:53] VITALS: BP 156/104; PULSE 73; RESP 18; TEMP 98.8
[2020-12-01] MEDS ORDERED: IBUPROFEN 600 MG TAB PO STA (01:01)
[2020-12-01] MEDS ORDERED: TOPICAL SKIN ADHESIVE 1 EACH AMP TOPICAL ONE (01:01)
[2020-12-01] MEDS ORDERED: ACETAMINOPHEN TAB 325 MG TAB PO STA (01:01)
[2020-12-01] MEDS ORDERED: DIPH,PERTUS(ACELL)TETVAC-LF 0.5 ML VIAL IM ONE (01:03)
--- NOTE | 2020-12-01 01:13 | ED ---
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 Patient was at work when an [employer] wrench broke off in the machine and cut his hand. Patient states he had a lot of bleeding initially. They cleaned it and applied a dressing. He reports minimal pain. He denies any difficulty with range of motion of the hand or thumb. He is unsure when his last tetanus vaccine was given. He denies any other injuries or concerns. Patient denies any headache, neck pain, back pain, chest pain, shortness of breath, dizziness, weakness, abdominal pain, nausea, vomiting, or difficulties with bowel movements or urination. - Related Data Previous Rx's Medication Instructions Recorded Ibuprofen [Motrin] 600 mg PO Q8HR PRN #20 tab 08/26/20 Allergies Allergy/AdvReac Type Severity Reaction Status Date / Time prednisone Allergy ITCHING Verified 12/01/20 00:49 AND RASH sertraline HCl [From Zoloft] Allergy Unknown Verified 12/01/20 00:49 Childhood Milk Containing Products AdvReac Nausea & Verified 12/01/20 00:49 [Dairy] Vomiting & Diarrhea Review of Systems ROS Statement: Those systems with pertinent positive or pertinent negative responses have been documented in the HPI. ROS Other: All systems not noted in ROS Statement are negative. Past Medical History Past Medical History: No Reported History Additional Past Medical History / Comment(s): CYST TO LEFT KNEE, BURSITIS, back pain History of Any Multi-Drug Resistant Organisms: None Reported Past Surgical History: Orthopedic Surgery Additional Past Surgical History / Comment(s): ORIF left hand SX Past Anesthesia/Blood Transfusion Reactions: No Reported Reaction Past Psychological History: Anxiety Smoking Status: Never smoker Past Alcohol Use History: None Reported Past Drug Use History: None Reported - Past Family History Mother Family Medical History: No Reported History General Exam Limitations: physical limitation General appearance: alert, in no apparent distress, other (Physical well- developed, well-nourished adult male patient in no acute distress. Vital signs upon presentation are temperature 98.8F, pulse 73, respirations 18, blood pressure 156/104, pulse ox 100% on room air .) Respiratory exam: Present: normal lung sounds bilaterally. Absent: respiratory distress, wheezes, rales, rhonchi, stridor Cardiovascular Exam: Present: regular rate, normal rhythm, normal heart sounds. Absent: systolic murmur, diastolic murmur, rubs, gallop, clicks Extremities exam: Present: full ROM, normal capillary refill, other (There is 4cm superficial laceration to the dorsal aspect of the left hand. No active bleeding. Wound is not gaping, edges are well approximated. Radial pulse 2+). Absent: tenderness, pedal edema, joint swelling, calf tenderness Neurological exam: Present: alert, oriented X3, CN II-XII intact Psychiatric exam: Present: normal affect, normal mood Skin exam: Present: warm, dry, intact, normal color. Absent: rash Course Vital Signs 12/01/20 00:49 Temperature 98.8 F Pulse Rate 73 Respiratory 18 Rate Blood Pressure 156/104 O2 Sat by Pulse 100 Oximetry Procedures - Laceration Laceration #1 Consent Obtained: verbal consent Indication: laceration Site: hand (Left) Size (cm): 4 Description: linear Depth: simple, single layer Pre-repair: irrigated extensively Type of Sutures: other (exofin) Patient Tolerated Procedure: well, no complications Medical Decision Making - Medical Decision Making 35-year-old male patient percents into the emergency department today for evaluation of laceration to the left hand. Physical examination did reveal a very superficial laceration to the dorsal aspect of the left hand. No bleeding on initial inspection. Wound was cleansed. I did repair with exofin. He was educated regarding care for skin clear, without use of the hand the next 2-3 days. Educated regarding signs or symptoms of infection. He is instructed to follow-up with employee health services or his primary care physician for recheck in 1-2 days. Return parameters were discussed in detail. He verbalizes understanding and agrees with this plan. My attending is Dr. Benson. Disposition Clinical Impression: Laceration of left hand Disposition: HOME SELF-CARE Condition: Good Instructions (If sedation given, give patient instructions): Laceration (ED), Skin Adhesive Care (ED) Additional Instructions: Do not pick or pull at glue. Avoid putting any oil-based ointments or soaps over the glued area. Monitor for any signs or symptoms of infection including but not limited to redness, swelling, drainage of pus, fever, or chills Follow- up through primary care physician for recheck in 1-2 days. Return to the emergency department for any new, worsening, or concerning symptoms. Is patient prescribed a controlled substance at d/c from ED?: No Referrals: Victoriano Porter DO [Primary Care Provider] - 1-2 days Time of Disposition: 01:29
== END 2020-12-01 01:46 | disposition home or self-care (01) ==
LOC: EC 00:43
DX: S61.412A Laceration without foreign body of left hand, initial encounter (principal); Z23 Encounter for immunization; Z88.8 Allergy status to other drugs, medicaments and biological substances; Z91.011 Allergy to milk products; W31.89XA Contact with other specified machinery, initial encounter; Y93.89 Activity, other specified; Y92.69 Other specified industrial and construction area as the place of occurrence of the external cause; Y99.0 Civilian activity done for income or pay
CPT/HCPCS: 12002; 90471; 90715; 99283

== ENCOUNTER → 2020-12-02 | Outpatient (CLI) | payer OTHER ==
--- NOTE | 2020-12-02 14:49 | XR ---
EXAMINATION TYPE: XR hand complete LT DATE OF EXAM: 12/02/2020 COMPARISON: NONE HISTORY: Pain TECHNIQUE: Three views are submitted. FINDINGS: The osseous structures are intact. Postsurgical change involving the fourth and fifth digits. IMPRESSION: 1. No definite acute fracture or dislocation if symptoms persist, follow-up study in 7 to 10 days wo uld be suggested
== END | disposition home or self-care (01) ==
LOC: RADXRMAIN 14:13
PROVIDERS: ATTEND Emergency Medicine
DX: S61.402A Unspecified open wound of left hand, initial encounter (principal); M79.642 Pain in left hand

== ENCOUNTER 2024-06-24 15:33 | Emergency (ER) | payer BC, OTHER ==
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
[2024-06-24 17:36] VITALS: RESP 18; TEMP 98.1
[2024-06-24] MEDS: ACETAMINOPHEN TAB 500 MG TAB PO STA (17:38)
[2024-06-24] MEDS: LIDOCAINE 1% INJ 10MG/ML (20 ML MDV) SQ ONE (17:39)
[2024-06-24 18:27] VITALS: BP 127/80; PULSE 76
== END 2024-06-24 18:28 | disposition home or self-care (01) ==
LOC: EC 15:33
CPT/HCPCS: 12002; 99283